=== PATIENT | male | born 1990 | race Caucasian/White ===

== ENCOUNTER 2018-08-03 00:36 | Emergency (ER) | payer SELFPAY ==
[~2018-08-03] VITALS: Ht 185.4 cm; Wt 96.6 kg
[2018-08-03 01:16] VITALS: BP 134/101
== END 2018-08-03 03:42 | disposition home or self-care (01) ==
LOC: ER 00:40
DX: M25.562 Pain in left knee (principal); M25.571 Pain in right ankle and joints of right foot; M54.2 Cervicalgia; M54.5 Low back pain; J45.909 Unspecified asthma, uncomplicated; F17.210 Nicotine dependence, cigarettes, uncomplicated; K21.9 Gastro-esophageal reflux disease without esophagitis; Z88.6 Allergy status to analgesic agent
CPT/HCPCS: 70450; 72125; 73560; 73610